=== PATIENT | female | born 1970 | race Caucasian/White ===

== ENCOUNTER 2017-08-12 19:38 | Emergency (ER) | payer OTHER ==
[~2017-08-12] VITALS: Ht 175.3 cm; Wt 95.7 kg
[~2017-08-12 19:38] MED LIST: CIPR500T4 PO; DICL50TA3 PO; DIFL150T PO; LISI-363 PO; LORA-392 PO; ZOFR4TAB3 SL
[2017-08-12 19:51] VITALS: BP 151/80; PULSE 99; RESP 18; TEMP 98.3; O2SAT 98
[2017-08-12] MEDS ORDERED: SODIUM CHLOR 0.9% 1000 ML INJ 1,000 ML IV SCH (20:06)
[2017-08-12 20:15] VITALS: RESP 16; O2SAT 98
[2017-08-12] MEDS ORDERED: LIDOCAINE VISCOUS 2% SOLN 15 ML UDC PO ONE (20:15)
[2017-08-12] MEDS ORDERED: ALUMINUM/MAGNESIUM/SIMETH 30 ML CUP PO ONE (20:15)
[2017-08-12] MEDS ORDERED: KETOROLAC TROMETHAMINE 30 MG/ML (IVP) VIAL IVP ONE (20:15)
[2017-08-12] MEDS ORDERED: SODIUM CHLORIDE 0.9% FLUSH 10 ML FLUSH IV FLUSH PRN (20:15)
[2017-08-12] MEDS ORDERED: ONDANSETRON HCL 4 MG/2 ML VIAL IVP ONE (20:15)
[2017-08-12 20:37] LABS: BILIRUBIN, URINE NEG (NEG); BLOOD, URINE TRACE (NEG); GLUCOSE,URINE NEG (NEG); KETONE, URINE NEG (NEG); NITRITE,URINE NEG (NEG); URINE COLOR YELLOW (YELLW/STRAW); URINE LEUKOCYTE ESTERASE NEG (NEG)
[2017-08-12 20:38] LABS: AUTOMATED NEUTROPHIL # 4.8 TH/MM3 (1.8-7.7); BASOPHIL # 0.1 TH/MM3 (0-0.2); BASOPHIL % 1.1 % (0.0-2.0); EOSINOPHIL # 0.1 TH/MM3 (0-0.4); EOSINOPHIL % 1.5 % (0.0-4.0); HEMATOCRIT 39.3 % (35.0-46.0); HEMOGLOBIN 13.1 GM/DL (11.6-15.3); LYMPH % 33.9 % (9.0-44.0); LYMPHOCYTE # 2.9 TH/MM3 (1.0-4.8); MEAN CELL VOLUME 87.1 FL (80.0-100.0); MEAN CORPUSCULAR HEMOGLOBIN 29.1 PG (27.0-34.0); MEAN CORPUSCULAR HGB CONC 33.4 % (32.0-36.0); MEAN PLATELET VOLUME 7.8 FL (7.0-11.0); MONO % 6.3 % (0.0-8.0); MONOCYTE # 0.5 TH/MM3 (0-0.9); NEUT % 57.2 % (16.0-70.0); PLATELET COUNT 300 TH/MM3 (150-450); RED BLOOD COUNT 4.52 MIL/MM3 (4.00-5.30); RED CELL DISTRIBUTION WIDTH 12.5 % (11.6-17.2); WHITE BLOOD COUNT 8.4 TH/MM3 (4.0-11.0)
[2017-08-12 20:41] LABS: RBC, URINE 0-3 /hpf (0-3); WBC, URINE 0-2 /hpf (0-5)
[2017-08-12 20:45] LABS: CHLORIDE 106 MEQ/L (98-107); SODIUM (NA) 138 MEQ/L (136-145)
[2017-08-12 20:48] LABS: ALBUMIN 3.4 GM/DL (3.4-5.0); BICARBONATE 27.3 MEQ/L (21.0-32.0); CALCIUM 9.2 MG/DL (8.5-10.1); GLUCOSE,RANDOM 84 MG/DL (74-106)
[2017-08-12 20:49] LABS: BLOOD UREA NITROGEN 6 MG/DL (7-18)
[2017-08-12 20:51] LABS: ALT (GPT) 14 U/L (10-53); AST (GOT) 10 U/L (15-37); CREATININE 0.72 MG/DL (0.50-1.00); GLOMERULAR FILTRATION RATE 86 ML/MIN (>89)
[2017-08-12 20:53] LABS: TOTAL BILIRUBIN ADULT 0.2 MG/DL (0.2-1.0); TOTAL PROTEIN 7.4 GM/DL (6.4-8.2)
[2017-08-12 20:54] LABS: ALKALINE PHOSPHATASE 89 U/L (45-117)
[2017-08-12] MEDS ORDERED: IOHEXOL 350 MG/ML 10 ML VIAL (for RAD DIAG) IVCONTRAST ONE (21:18)
--- NOTE | 2017-08-12 21:21 | PD ---
HPI Chief Complaint: Abdominal Pain Time Seen by Provider: 19:57 Travel History International Travel<30 days: No Contact w/Intl Traveler<30days: No Traveled to known affect area: No History of Present Illness HPI The patient is 47 years old. She arrives to the ER noting that one month prior she had a urinary tract infection and since then she has had left upper quadrant left flank pain. It is described as a bruising-like sensation which is tender to palpation. There is a generalized bloating sensation. The pain comes in waves. Patient has appoint with primary doctor Dr. West tomorrow however arrives tonight with concern for serious abdominopelvic pathology. She reports diarrhea. She denies vomiting. She reports any oral intake causes nausea. The patient reports a low-grade temp over the weekend at 100 max. She denies alcohol abuse. She denies tobaccoism. She denies drug use. PFSH Past Medical History Anxiety: Yes Cerebrovascular Accident: Yes Diabetes: No Diminished Hearing: No Hypertension: Yes Tetanus Vaccination: > 5 Years Influenza Vaccination: No ?: Not Past Surgical History Section: Yes Other Surgery: Yes (BREAST AUGMENTATION, ABD LIPOSUCTION) Social History Alcohol Use: Yes (SOCIALLY) Tobacco Use: No Substance Use: No Allergies-Medications (Allergen,Severity, Reaction): Coded Allergies: penicillin G (Unverified Allergy, Severe, BLISTERS, 12/03/16) oxycodone (Unverified Adverse Reaction, Mild, NAUSEA -- PT TOLERATES PERCOCET WITHOUT ADVERSE EFFECTS, 12/03/16) Reported Meds & Prescriptions Reported Meds & Active Scripts Active Gaviscon Extra Strength R Liq (Aluminum Hydroxide-Mag Carb Liq) 508-475 Mg/10 Ml Susp 10-20 Ml PO QID PRN 7 Days Maximum 80 mL/24 hrs. Diflucan 150 mg (Fluconazole) 150 Mg Tab 150 Mg PO TODAY Zofran ODT (Ondansetron HCl) 4 Mg Tab 4 Mg SL Q6H PRN FOR NAUSEA/VOMITING Diclofenac Sodium Dr (Diclofenac Sodium) 50 Mg Tab 50 Mg PO Q12HR Cipro (Ciprofloxacin HCl) 500 Mg Tab 500 Mg PO BID Reported Ativan (Lorazepam) 0.5 Mg Tab 0.5 Mg PO Q6H PRN Lisinopril 20 mg (Lisinopril) 20 Mg Tab 20 Mg PO DAILY Review of Systems Except as stated in HPI: all other systems reviewed are Neg General / Constitutional: No: Fever Physical Exam Narrative GENERAL: 47 yo F, WNWD, NAD Vital Signs Date Time Temp Pulse Resp B/P (MAP) Pulse Ox O2 Delivery O2 Flow Rate FiO2 08/12/17 20:15 16 98 Room Air 08/12/17 19:51 98.3 99 18 151/80 (103) 98 SKIN: Warm and dry. HEAD: Atraumatic. Normocephalic. EYES: Pupils equal and round. No scleral icterus. No injection or drainage. ENT: No nasal bleeding or discharge. Mucous membranes pink and moist. NECK: Trachea midline. No JVD. CARDIOVASCULAR: Regular rate and rhythm. RESPIRATORY: No accessory muscle use. Clear to auscultation. Breath sounds equal bilaterally. GASTROINTESTINAL: Soft. TTP LUE. No flank tenderness either side. MUSCULOSKELETAL: Extremities without clubbing, cyanosis, or edema. No obvious deformities. NEUROLOGICAL: Awake and alert. No obvious cranial nerve deficits. Motor grossly within normal limits. Five out of 5 muscle strength in the arms and legs. Normal speech. PSYCHIATRIC: Appropriate mood and affect; insight and judgment normal. Data Data Last Documented VS Vital Signs Date Time Temp Pulse Resp B/P (MAP) Pulse Ox O2 Delivery O2 Flow Rate FiO2 08/12/17 21:35 08/12/17 20:15 16 98 Room Air 08/12/17 19:51 98.3 99 Orders Orders Complete Blood Count With Diff (08/12/17 20:06) Comprehensive Metabolic Panel (08/12/17 20:06) Lipase (08/12/17 20:06) Urinalysis - C+S If Indicated (08/12/17 20:06) Ct Abd/Pel W Iv Contrast(Rout) (08/12/17 20:06) Iv Access Insert/Monitor (08/12/17 20:06) Ecg Monitoring (08/12/17 20:06) Oximetry (08/12/17 20:06) Ondansetron Inj (Zofran Inj) (08/12/17 20:15) Sodium Chlor 0.9% 1000 Ml Inj (Ns 1000 M (08/12/17 20:06) Sodium Chloride 0.9% Flush (Ns Flush) (08/12/17 20:15) Ketorolac Inj (Toradol Inj) (08/12/17 20:15) Al-Mag Hy-Si 40-40-4 Mg/Ml Liq (Mag-Al P (08/12/17 20:15) Lidocaine 2% Viscous (Xylocaine 2% Visco (08/12/17 20:15) Iohexol 350 Inj (Omnipaque 350 Inj) (08/12/17 21:18) Ed Discharge Order (08/12/17 21:29) Labs Laboratory Tests Test 08/12/17 20:24 White Blood Count 8.4 TH/MM3 Red Blood Count 4.52 MIL/MM3 Hemoglobin 13.1 GM/DL Hematocrit 39.3 % Mean Corpuscular Volume 87.1 FL Mean Corpuscular Hemoglobin 29.1 PG Mean Corpuscular Hemoglobin Concent 33.4 % Red Cell Distribution Width 12.5 % Platelet Count 300 TH/MM3 Mean Platelet Volume 7.8 FL Neutrophils (%) (Auto) 57.2 % Lymphocytes (%) (Auto) 33.9 % Monocytes (%) (Auto) 6.3 % Eosinophils (%) (Auto) 1.5 % Basophils (%) (Auto) 1.1 % Neutrophils # (Auto) 4.8 TH/MM3 Lymphocytes # (Auto) 2.9 TH/MM3 Monocytes # (Auto) 0.5 TH/MM3 Eosinophils # (Auto) 0.1 TH/MM3 Basophils # (Auto) 0.1 TH/MM3 CBC Comment DIFF FINAL Differential Comment Urine Color YELLOW Urine Turbidity CLEAR Urine pH 6.0 Urine Specific Emblem LESS/EQUAL 1.005 Urine Protein NEG mg/dL Urine Glucose (UA) NEG mg/dL Urine Ketones NEG mg/dL Urine Occult Blood TRACE Urine Nitrite NEG Urine Bilirubin NEG Urine Urobilinogen 0.2 MG/DL Urine Leukocyte Esterase NEG Urine RBC 0-3 /hpf Urine WBC 0-2 /hpf Urine Squamous Epithelial Cells 6-8 /hpf Urine Bacteria NONE /hpf Microscopic Urinalysis Comment CULT NOT INDICATED Blood Urea Nitrogen 6 MG/DL Creatinine 0.72 MG/DL Random Glucose 84 MG/DL Total Protein 7.4 GM/DL Albumin 3.4 GM/DL Calcium Level 9.2 MG/DL Alkaline Phosphatase 89 U/L Aspartate Amino Transf (AST/SGOT) 10 U/L Alanine Aminotransferase (ALT/SGPT) 14 U/L Total Bilirubin 0.2 MG/DL Sodium Level 138 MEQ/L Potassium Level 4.0 MEQ/L Chloride Level 106 MEQ/L Carbon Dioxide Level 27.3 MEQ/L Anion Gap 5 MEQ/L Estimat Glomerular Filtration Rate 86 ML/MIN Lipase 125 U/L MDM Medical Decision Making Medical Screen Exam Complete: Yes Emergency Medical Condition: Yes Medical Record Reviewed: Yes Differential Diagnosis Constipation, Gastritis, Acute Cholecystitis, Biliary Colic, Pancreatitis, MARIE , Hepatitis, Bowel Obstruction, Cystitis, Mesenteric Ischemia, AAA, Appendicitis , Renal Stone/Hydronephrosis, GERD, perforated viscous Narrative Course CBC & BMP Diagram 08/12/17 20:24 Total Protein 7.4, Albumin 3.4, Calcium Level 9.2, Alkaline Phosphatase 89, Aspartate Amino Transf (AST/SGOT) 10 L, Alanine Aminotransferase (ALT/SGPT) 14, Total Bilirubin 0.2 Lipase 125 UA: No UTI The patient is resting comfortably and feels better, is alert and in no distress. The patients results and examination findings were discussed. The repeat examination is unremarkable and benign. The history, exam, diagnostic testing, and current condition do not suggest any significant pathology to warrant further testing, continued ED treatment, admission, or surgical evaluation at this point. The vital signs have been stable. The patient does not have uncontrollable pain, intractable vomiting, or other significant symptoms. The patient's condition is stable and appropriate for discharge. The patient will pursue further outpatient evaluation with a primary care physician or other designated or consulting physician as indicated in the discharge instructions. The patient expressed understanding and was agreeable with this plan. Diagnosis Primary Impression: Ovarian cyst Qualified Codes: N83.202 - Unspecified ovarian cyst, left side Additional Impressions: Nausea Diarrhea Qualified Codes: R19.7 - Diarrhea, unspecified LUQ abdominal tenderness Qualified Codes: R10.822 - Left upper quadrant rebound abdominal tenderness Pleural nodule Referrals: Pablito West MD 1 day Med/Other Pt SpecificInfo: No Change to Meds Scripts Aluminum Hydroxide-Mag Carb Liq (Gaviscon Extra Strength R Liq) 508-475 Mg/10 Ml Susp 10-20 ML PO QID Y for HEARTBURN for 7 Days, ML 0 Refills Maximum 80 mL/24 hrs. Prov: Jimmy Berumen MD 08/12/17 Disposition: 01 DISCHARGE HOME Condition: Stable Jimmy Berumen MD Aug 12, 2017 21:21
--- NOTE | 2017-08-12 21:24 | RADRPT ---
EXAM DATE/TIME: 08/12/2017 20:56 [facility] COMPARISON: CT ABDOMEN & PELVIS W/O CONTRAST, April 04, 2015, 20:44. INDICATIONS : Left upper quadrant pain. IV CONTRAST: 100 cc Omnipaque 350 (iohexol) IV ORAL CONTRAST: No oral contrast ingested. RADIATION DOSE: 17.66 CTDIvol (mGy) MEDICAL HISTORY : Hypertension. SURGICAL HISTORY : section. ENCOUNTER: Initial ACUITY: 1 day PAIN SCALE: 10/10 LOCATION: Left upper quadrant TECHNIQUE: Volumetric scanning of the abdomen and pelvis was performed. Using automated exposure control and ad justment of the mA and/or kV according to patient size, radiation dose was kept as low as reasonably achievable to obtain optimal diagnostic quality images. DICOM format image data is available electro nically for review and comparison. FINDINGS: LOWER LUNGS: The visualized lower lungs are clear. LIVER: Homogeneous density without concerning lesion. 1 cm cyst left hepatic lobe, stable. There is no dila tion of the biliary tree. No calcified gallstones. SPLEEN: Normal size without lesion. PANCREAS: Within normal limits. KIDNEYS: Normal in size and shape. There is no mass, stone or hydronephrosis. ADRENAL GLANDS: Within normal limits. VASCULAR: There is no aortic aneurysm. BOWEL/MESENTERY: There is moderate diverticulosis of the sigmoid colon. No acute inflammatory changes are demonstrated . ABDOMINAL WALL: Within normal limits. RETROPERITONEUM: There is no lymphadenopathy. BLADDER: No wall thickening or mass. REPRODUCTIVE: 2.1 cm left ovarian cyst. No inflammatory changes. No free fluid. INGUINAL: There is no lymphadenopathy or hernia. MUSCULOSKELETAL: No acute bony abnormality demonstrated. CONCLUSION: 1. Diverticulosis of the sigmoid colon without diverticulitis or other acute inflammatory changes. 2. Small, benign appearing cyst of the left ovary. Fredo Quijano MD on August 12, 2017 at 21:19 Board Certified Radiologist. This report was verified electronically.
[2017-08-12] MEDS ORDERED: GAVISUS2 PO (21:37)
== END 2017-08-12 22:10 | disposition home or self-care (01) ==
LOC: PHED 19:38
DX: N83.202 Unspecified ovarian cyst, left side (principal); R11.0 Nausea; R19.7 Diarrhea, unspecified; R10.822 Left upper quadrant rebound abdominal tenderness; R91.1 Solitary pulmonary nodule; I10 Essential (primary) hypertension
CPT/HCPCS: 74177; 80053; 81001; 83690; 85025; 96361; 96374; 96375; 99285; J1885; J2405; J7030; Q9967